=== PATIENT | female | born 1995 | race American Indian/Alaskan Native ===

== ENCOUNTER 2020-08-31 13:15 | Emergency (ER) | payer MEDICAID, OTHER ==
[2020-08-31 14:47] LABS: Bilirubin,Urine NEG (Negative); Blood,Urine MOD (Negative); Color,Urine Yellow (Yellow); Mucus,Urine 1+ /HPF; Protein,Urine <15 mg/dL mg/dL (Negative); Urobilinogen,Urine < 2.0 mg/dL (<2.0)
[2020-08-31 15:04] LABS: Basophils % (Auto) 0.4 % (0.0-1.8); Eosinophils % (Auto) 0.7 % (0.0-4.3); Hematocrit 35.5 % (30.3-42.9); Hemoglobin 12.2 gm/dl (10.1-14.3); Lymphocytes # (Auto) 1.7 K/mm3 (1.2-5.4); Lymphocytes % (Auto) 28.2 % (13.4-35.0); Mean Corpuscular HGB Conc 34 % (30-34); Mean Corpuscular Volume 85 fl (79-97); Monocytes # (Auto) 0.4 K/mm3 (0.0-0.8); Monocytes % (Auto) 5.7 % (0.0-7.3); Platelet Count 245 K/mm3 (140-440); Red Blood Count 4.19 M/mm3 (3.65-5.03); Red Cell Distribution Width 13.1 % (13.2-15.2)
[2020-08-31 18:51] VITALS: BP 135/88
--- NOTE | 2020-08-31 19:25 | Emergency Department Report ---
ED Female HPI - General Chief complaint: Vaginal Bleeding Stated complaint: VAG BLEED (4MOS PREG) Time Seen by Provider: 08/31/20 19:18 Source: patient Mode of arrival: Ambulatory Limitations: No Limitations - History of Present Illness Initial comments: 25-year-old [place] female who is 16 weeks presents emerge department complaining of a 1 day history of vaginal bleeding a 2-day history of pelvic cramping of unknown etiology. Reports no hematuria or dysuria no fevers chills or sweats no chest pain or palpitations no headache. Has had some nausea and vomiting secondary to her . 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 Quality: cramping, dull Consistency: constant Are you Now?: Yes - Related Data Allergies Allergy/AdvReac Type Severity Reaction Status Date / Time No Known Allergies Allergy Unverified 06/05/14 20:36 ED Review of Systems ROS: Stated complaint: VAG BLEED (4MOS PREG) Other details as noted in HPI Comment: All other systems reviewed and negative ED Past Medical Hx - Past Medical History Previous Medical History?: No - Surgical History Past Surgical History?: No - Social History Smoking Status: Never Smoker Substance Use Type: Alcohol ED Physical Exam - General Limitations: No Limitations General appearance: alert, in no apparent distress - Head Head exam: Present: atraumatic, normocephalic - Eye Eye exam: Present: normal appearance, PERRL Pupils: Present: normal accommodation - ENT ENT exam: Present: normal exam, normal orophraynx, mucous membranes moist, TM's normal bilaterally - Neck Neck exam: Present: normal inspection, full ROM - Respiratory Respiratory exam: Present: normal lung sounds bilaterally. Absent: respiratory distress, rales, rhonchi - Cardiovascular Cardiovascular Exam: Present: regular rate, normal rhythm. Absent: systolic murmur, diastolic murmur, rubs, gallop - GI/Abdominal GI/Abdominal exam: Present: soft, normal bowel sounds - Extremities Exam Extremities exam: Present: normal inspection - Back Exam Back exam: Present: normal inspection - Neurological Exam Neurological exam: Present: alert, oriented X3 - Psychiatric Psychiatric exam: Present: normal affect, normal mood - Skin Skin exam: Present: warm, dry, intact, normal color. Absent: rash ED Course Vital Signs 08/31/20 08/31/20 14:04 18:50 Temperature 98.6 F Pulse Rate 78 78 Respiratory 18 16 Rate Blood Pressure 108/52 Blood Pressure 135/88 [Right] O2 Sat by Pulse 100 98 Oximetry ED Medical Decision Making - Lab Data Result diagrams: 08/31/20 14:29 - Radiology Data Radiology results: report reviewed Patient Name: SHARIFA SALDIVAR Gender: Female Date of : 1995 Referring Provider: DOC, ED Organization: [facility] Accession Number: [id number] Requested Date: August 31, 2020 18:52 Report Status: Final Requested Procedure: 1 Procedure Description: US OB >= 14 weeks Fetus Modality: US Findings Reporting MD: Isaiah Reyes Dictation Time: August 31, 2020 20:04 T ranscriptionist: Not available Manager Editorial Date: US OB transvaginal, US OB >= 14 weeks Fetus INDICATION / CLINICAL INFORMATION: 16 wk and bleeding.. COMPARISON: None available. FINDINGS: A single live fetus of approximately 15 weeks 4 days gestational age is seen in the uterus in variable position. GVP is 4.8 cm. heart rate is 147. Femur length is 1.9 cm equaling 15 weeks 4 days gestational age IMPRESSION: Single live fetus of approximately 15 weeks 4 days gestational age in variable position in the uterus. heart rate is 147 Signer Name: Isaiah Reyes MD FACR Signed: 08/31/2020 8:04 PM Workstation Name: [id number] - Medical Decision Making 25-year-old -[place] female this patient presents with vaginal bleeding in the first trimester, differential diagnosis includes ectopic , IUP, month threatened/inevitable , along with a completed . Patient is HDS and without a history of coagulopathy or infectious symptoms. The ultrasound does reveal an IUP at 15 weeks 4 days weeks with an elevated hCG quant and normal heart rate Based on exam history and ED work-up patient presentation is not consistent with an ectopic , life-threatening coagulopathy, trauma, serious bacterial infection, central process or other emergency Critical care attestation.: If time is entered above; I have spent that time in minutes in the direct care of this critically ill patient, excluding procedure time. ED Disposition Clinical Impression: Vaginal bleeding before 22 weeks gestation Disposition: DC-01 TO HOME OR SELFCARE Is pt being admited?: No Does the pt Need Aspirin: No Condition: Stable Instructions: Vaginal Bleeding During , Second Trimester, [id number] Additional Instructions: Please be sure to follow-up with your FUNERAL CAR DRIVER. Currently you have a healthy be sure to continue taking her multivitamins and hydrate very well and avoid an infection exposure Patient Name: SHARIFA SALDIVAR Gender: Female Date of : 1995 Referring Provider: CHERRIE, RONNY Organization: [facility] Accession Number: [id number] Requested Date: August 31, 2020 18:52 Report Status: Final Requested Procedure: 1 Procedure Description: US OB >= 14 weeks Fetus Modality: US Findings Reporting MD: Isaiah Reyes Dictation Time: August 31, 2020 20:04 Gas Attendant: Not available Manager Editorial Date: US OB transvaginal, US OB >= 14 weeks Fetus INDICATION / CLINICAL INFORMATION: 16 wk and bleeding.. COMPARISON: None available. FINDINGS: A single live fetus of approximately 15 weeks 4 days gestational age is seen in the uterus in variable position. GVP is 4.8 cm. heart rate is 147. Femur length is 1.9 cm equaling 15 weeks 4 days gestational age IMPRESSION: Single live fetus of approximately 15 weeks 4 days gestational age in variable position in the uterus. heart rate is 147 Signer Name: Isaiah Reyes MD FACR Signed: 08/31/2020 8:04 PM Workstation Name: [id number] Referrals: PRIMARY CARE, [Primary Care Provider] - 3-5 Days (Please follow-up with your FUNERAL CAR DRIVER in the [place])
--- NOTE | 2020-08-31 21:08 | Ultrasound Report ---
US OB transvaginal, US OB >= 14 weeks Fetus INDICATION / CLINICAL INFORMATION: 16 wk and bleeding.. COMPARISON: None available. FINDINGS: A single live fetus of approximately 15 weeks 4 days gestational age is seen in the uterus in variabl e position. GVP is 4.8 cm. heart rate is 147. Femur length is 1.9 cm equaling 15 weeks 4 days g estational age IMPRESSION: Single live fetus of approximately 15 weeks 4 days gestational age in variable position in the uterus . heart rate is 147 Signer Name: Isaiah Reyes MD FACR Signed: 08/31/2020 9:04 PM Workstation Name: [id number]
== END 2020-08-31 22:03 | disposition home or self-care (01) ==
LOC: ED 13:15
DX: O20.8 Other hemorrhage in early pregnancy (principal); O21.8 Other vomiting complicating pregnancy; Z3A.15 15 weeks gestation of pregnancy
CPT/HCPCS: 36415; 76805; 76817; 81001; 84702; 84703; 85025; 86900; 86901